=== PATIENT | male | born 1965 | race Caucasian/White ===

== ENCOUNTER 2023-09-03 12:37 | Day surgery (SDC) | payer BC, SELFPAY ==
[2023-09-03] VITALS (8 sets, daily range): BP systolic 112–140; BP diastolic 65–85; PULSE 55–68; TEMP 36.1–36.3; O2SAT 95–98; BMI 23.3
--- NOTE | 2023-09-03 12:47 | ECG_ITS ---
The [facility] Test Date: 2023-09-03 Pat Name: ROCÍO HERNÁNDEZ Department: Room: - Gender: Male Save All Operator: : 1965 Requested By: JA PATTON Order Number: [id number] Reading MD: TWYLA CRAWFORD Measurements Intervals [place] Rate: 58 P: 59 AK: 175 QRS: 75 QRSD: 84 T: 65 QT: 406 QTc: 401 Interpretive Statements SINUS BRADYCARDIA No previous ECG available for comparison Electronically Signed On 09-03-2023 17:54:34 EDT by TWYLA CRAWFORD
--- NOTE | 2023-09-03 12:50 | XR_ITS ---
The [address] [address] Patient Name: ROCÍO HERNÁNDEZ MRN: [id number] date: 1965 Sex: M Assigned Patient Location: [facility] Current Patient Location: [facility] Accession/Order Number: [id number] Exam Date: 09/03/2023 12:58 Report Date: 09/03/2023 13:41 At the request of: JA PATTON Procedure: XR abdomen 1V EXAM: XR abdomen 1V HISTORY: preop COMPARISON: None TECHNIQUE: AP supine view of the abdomen was obtained. FINDINGS: There is an approximately 4 mm calcific density overlying the expected location of the inferior left kidney, consider left renal calculus. A few small calcifications overlying the pelvis most likely representing phleboliths, correlate clinically. Bowel gas pattern is grossly nonspecific. Mild to moderate degenerative changes in the lumbar spine. Mild degenerative change about the hip joints. XR/XR abdomen 1V IMPRESSION: Findings suggesting calcified left renal calculus as noted. A few small calcifications overlying the pelvis likely represent phleboliths, correlate clinically. Follow-up as needed. Electronically authenticated by: LISET PHILIPPE Date: 09/03/2023 13:41
[2023-09-03 13:12] LABS: INR 1.01; Prothrombin Time 10.7 sec (9.0-11.6)
[2023-09-03 13:14] LABS: Partial Thromboplastin Time 29.2 sec (22.3-36.2)
[2023-09-03] MEDS: LACTATED RINGER'S SOLUTION 1,000 ML 50 ML IV (13:35)
[2023-09-03] MEDS: CIPROFLOXACIN IN 5 % DEXTROSE 400 MG/200 ML PIGGYBACK 200 MG IV (14:56)
--- NOTE | 2023-09-03 15:26 | P.URON_ITS ---
Urology Surgery Operative Note Operative Note Procedure Date: 09/03/23 Time Out Performed: yes Pre-op Diagnosis: Left flank pain; left nephrolithiasis Post-op Diagnosis: same as pre-op Procedures performed: 1. Left ESWL. Anesthesia: General-LMA Primary Surgeon: Navin Carrion Complications: None Estimated blood loss (mL): 0 Findings: Left mid pole calculus Specimens: None Drains: None Indications for Procedures: This gentleman has a 7 mm left renal calculus which has been nonobstructing. Within the last month he developed rather severe left flank pain which was intermittent in nature and reminiscent of previous kidney stones. He is strongly desirous for ESWL in an attempt to correct the stone up. He has signed an informed consent after risks were explained to him. Some of these risks include bleeding, perinephric hematoma, infection and anesthesia to name a few. In his case, Persistent pain is also a risk. Detailed description of Procedure: The patient was brought to the Operating Room and placed on Siemens electromagnetic lithotripsy treatment table in the supine position. SCDs were placed on their lower extremities and turned on and functioning during the entire case. Timeout was done by all parties in the room. We all agreed upon the patient's identification and the planned procedures for this patient. General Anesthesia was then administered via LMA. Treatment head was then brought to the patient's correct side. While using flourscopy the stone was identified and lined up into the crosshairs. We then began applying shocks.We first started at power level 2.0 and increased to a maximum power level 3.5. Intermittent fluoroscopy revealed that the stone steadily fragmented. Within 500 shocks the majority of the stone was fragmented. We applied a total of 1500 shocks. Our last fluoroscopic image revealed no evidence of any formed stone remaining. The procedure was then terminated. [facility] and [facility] to PACU in stable condition.
--- NOTE | 2023-09-03 15:51 | PC.NURSE ---
Bruising noted left flank
== END 2023-09-03 16:50 | disposition home or self-care (01) ==
PROVIDERS: Visit Provider Urology
PROC: (CPT 873; principal; 2023-09-03 14:00)
DX: N20.0 Calculus of kidney (principal); Z87.442 Personal history of urinary calculi; N28.1 Cyst of kidney, acquired; N40.1 Benign prostatic hyperplasia with lower urinary tract symptoms; R10.9 Unspecified abdominal pain
CPT/HCPCS: 50590; 36415; 74018; 85610; 85730; 93005; J2704